=== PATIENT | male | born 1950 | race Caucasian/White ===

== ENCOUNTER → 2017-01-09 | Outpatient (CLI) | payer MEDICARE, OTHER ==
--- NOTE | 2017-01-09 16:15 | RADIOLOGY REPORT PS360 ---
CHEST(2 VIEWS-NOT PORTABLE) Ordering physician: NOHEMI Mera Age: 66 years Male INDICATION: chest symptomsAMIODARONE SURVEILLANCE PROCEDURE: CHEST(2 VIEWS-NOT PORTABLE) FINDINGS: No previous chest films for comparison. Lungs well expanded and clear with nothing definitely acute. No pneumothorax. No pleural effusion. . Jie and mediastinal structures appear satisfactory. Calcified over 2.5 cm azygous node reflects old granulomatous disease as does a up to 2 cm cm node at the AP window Benign Calcified granuloma at the periphery left midlung 7 mm size Pacemaker device overlies the left chest with atrial and ventricular leads intact Heart normal size. Normal pulmonary vascularity. Chest wall unremarkable. T-spine intact. IMPRESSION ----- . No active disease in the chest.. Lungs clear . Old granulomatous disease noted. Pacemaker No active disease Nothing definite acute at chest
== END ==
LOC: RAD 10:00
DX: Z51.81 Encounter for therapeutic drug level monitoring (principal)

== ENCOUNTER → 2017-02-13 | Outpatient (CLI) | payer MEDICARE, OTHER ==
--- NOTE | 2017-02-13 11:59 | RADIOLOGY REPORT PS360 ---
KNEE-3 VIEWS-LT COMPARISON: None HISTORY: Acute left knee pain TECHNIQUE: AP lateral and oblique views FINDINGS: The femoral condyles tibial plateau and head of the fibula appear normal. There is minor joint space narrowing medially and minor spurring of the medial tibial spine. The patella appears intact and is no effusion. There is minor cortical irregularity of the tibial tubercle. IMPRESSION: Mild degenerative change primarily involving the medial joint space
--- NOTE | 2017-02-13 12:02 | RADIOLOGY REPORT PS360 ---
US EXTREMITIES LT LIMITED COMPARISON: Plain films left knee same date HISTORY: Pain in popliteal fossa area, intermittent swelling TECHNIQUE: Targeted ultrasound the popliteal fossa FINDINGS: There is normal diffuse heterogenic echogenicity of the subcutaneous tissues. There is no sonolucent structure to suggest a Pittman's cyst. There is no abnormal solid mass identified. IMPRESSION: Negative targeted ultrasound popliteal fossa, no evidence of popliteal cyst
== END ==
LOC: RAD 09:28
DX: M25.562 Pain in left knee (principal)